=== PATIENT | female | born 1955 | race Caucasian/White ===

== ENCOUNTER 2020-11-05 09:53 | Emergency (ER) | payer SELFPAY ==
[2020-11-05 09:57] VITALS: BP 170/90; PULSE 65; RESP 18; TEMP 36.7; O2SAT 96
[2020-11-05] MEDS: ACETAMINOPHEN 325 MG TABLET 650 MG PO (10:51)
--- NOTE | 2020-11-05 10:58 | ED.HEATRA ---
HPI - Head Injury General Chief complaint: Head Injury Stated complaint: fell today, hit back of head Time Seen by Provider: 11/05/20 10:58 Source: patient Mode of arrival: Ambulatory Limitations: no limitations History of Present Illness HPI Narrative: This is a 65-year-old female comes emergency department with complaint of laceration to the posterior scalp. Patient was assisting in pulling a boat my rope when it gave way and she fell backwards hitting the back of her head. She denies any loss of consciousness. She does have a headache. She denies any vision changes, no neck or back pain. No nausea, no vomiting, no numbness, tingling or weakness in her extremities. She does not take any anticoagulants. She takes PPI for her stomach and amitriptyline for restless legs. She does have a history of uterine cancer and had surgery for this but denies any other prior surgical history. She denies any aspirin, warfarin or other thinners. She denies any allergies to medications. Related Data Previous Rx's Medication Instructions Recorded acetaminophen-codeine 1 tab PO Q6H PRN #10 tab 11/05/20 Allergies Allergy/AdvReac Type Severity Reaction Status Date / Time No Known Drug Allergies Allergy Verified 11/05/20 09:57 Review of Systems Review of Systems ROS Unobtainable: All systems reviewed & are unremarkable except as noted in HPI and below Patient History Social History Smoking Status: Never smoker Smoking Status: Never smoker alcohol intake frequency: 0-2 drinks per day Substance Use Type: does not use Exam Narrative Exam Narrative: GEN: Patient appears in mild distress. HEAD: Patient has a 2.4 cm v-shaped laceration to the posterior scalp, no raccoon/Nails sign. NECK: Nontender, painless range of motion, trachea midline Negative Nexus criteria, there is no mid line tenderness, distracting injury, altered mental status, neuro deficit, recent EtOH. EYES: PERRLA, EOMI ENT: External inspection normal, trachea is midline, TM's are normal no hemotypanum, Nares are clear, no septal hematoma, no dental or oral injury, airway is normal and with normal occlusion, No bony tenderness RESP: Chest is nontender and has symmetric movement, no ecchymosis, breath sounds are normal no crackles, wheezes or rales CVS: Heart sounds are normal, no murmur noted, No JVD. ABG/GI: Nontender, soft, normal bowel sounds, no distention, no organomegaly NEURO: Oriented AOx3, neuro is grossly intact, sensation and motor is normal all 4 extremities moving, cranial nerves II through XII are intact, GCS is 15 PSYCH: Normal mood and affect SKIN: Intact other than above, warm and dry, no crepitus and without decubitus BACK: No CVA tenderness, no vertebral tenderness, no step-off's, no crepitus EXT: Atraumatic, hips are nontender, no pedal edema, normal color and temperature, normal range of motion of extremities with normal tendon exam, 2+ pulses in all four extremities Initial Vital Signs Initial Vital Signs: Vital Signs Temperature 98.0 F 11/05/20 09:57 Pulse Rate 65 11/05/20 09:57 Respiratory Rate 18 11/05/20 09:57 Blood Pressure 170/90 H 11/05/20 09:57 Pulse Oximetry 96 11/05/20 09:57 Procedures Laceration Repair Laceration 1: Site: scalp Size (cm): 2.4 Description: irregular Depth: simple, single layer Local Anesthetic: other anesthetic (topical prilocaine) Pre-repair: wound explored and irrigated extensively Skin layer closed with: gladys Number of sutures: [address] coma scale eye opening: Spontaneous Ave coma scale verbal response: Orientated [place] coma scale motor response: Obey commands Ave coma scale total score: 15 Course Orders Ordered: Discontinued Medications Acetaminophen (Acetaminophen 325 Mg Tablet) 650 mg PO NOW ONE Stop: 11/05/20 10:48 Last Admin: 11/05/20 10:51 Dose: 650 mg Documented by: JABIER Acetaminophen/Codeine Phosphate (Codeine/Acetaminophen 30/300 Tablet) 1 tab PO NOW ONE Stop: 11/05/20 12:32 Last Admin: 11/05/20 13:05 Dose: 1 tab Documented by: TYRA Lidocaine/Prilocaine (Lidocaine/Prilocaine 5 Gm) 5 gm TOP NOW ONE Stop: 11/05/20 12:21 Last Admin: 11/05/20 13:01 Dose: 5 gm Documented by: TYRA Vital Signs Vital signs: Vital Signs - 8 hr 05/18/21 13:42 Pulse Rate 67 Blood Pressure 128/76 Pulse Oximetry 97 MDM - Head Injury MDM Narrative Medical decision making narrative: 65-year-old female with ground level fall that was mechanical in nature. Patient has a v-shaped laceration posterior scalp root required gladys. Patient does not have any red flag symptoms recurrent she has had CT and she prefers to avoid such at this time. She has no high risk symptoms currently either. Return precautions were discussed and she feels comfortable with this plan. Discharge Plan Departure Patient Disposition: Home Clinical Impression: Laceration of scalp, Closed head injury Instructions: Closed Head Injury, How to Care for a Surgical Wound-Gladys Activity Restrictions/Additional Instructions: Follow-up the next 7-10 days for removal of your gladys. You can follow-up with primary care, urgent care or the emergency department. You may take pain medication 1 tablet every 6 hours as needed. This medication can make you sleepy do not drive, perform his activities or make any major decisions while taking it. Medication can also make you constipated make sure take a stool softener once to twice daily until stools are soft and regular. Prescription to [facility] Wound Care: Keep wound(s) clean and dry. Wash daily with soap and water only. Do not use over the counter products (alcohol or peroxide)on the wounds unless instructed by a physician. If wound condition worsens (increased/expanding redness, developing fluid blisters, or worsening pain), either contact your doctor for an urgent re-assessment , or return to the Emergency Department. Return to the Emergency Department for any new or worsening symptoms. Return if fever greater than 100.4 Fahrenheit, increased swelling, increasing pain or worsening symptoms such as increased discharge or spreading redness. Severe headaches, vision changes, persistent vomiting, new numbness, tingling or weakness of your extremities, new neck or back pain, difficulty with ambulation, confusion or other new or altered mental status, or other new or concerning symptoms. Prescriptions: New acetaminophen-codeine 300-30 mg tablet 1 tab PO Q6H PRN (Reason: pain) Qty: 10 RF: 0
[2020-11-05] MEDS: LIDOCAINE/PRILOCAINE 5 GM TOP (13:01)
[2020-11-05] MEDS: CODEINE/ACETAMINOPHEN 30/300 TABLET 1 TAB PO (13:05)
[2020-11-05 13:42] VITALS: BP 128/76; PULSE 67; O2SAT 97
== END 2020-11-05 13:42 | disposition home or self-care (01) ==
PROVIDERS: Emergency Provider Emergency Medicine
DX: S01.01XA Laceration without foreign body of scalp, initial encounter (principal); W22.8XXA Striking against or struck by other objects, initial encounter
CPT/HCPCS: 12001; 99283